=== PATIENT | male | born 1955 | race Caucasian/White ===

== ENCOUNTER 2021-06-03 09:34 | Day surgery (SDC) | payer MEDICARE ==
[~2021-06-03] VITALS: Ht 182.9 cm; Wt 78.8 kg
[~2021-06-03 09:34] MED LIST: Apriso0.375 GM PO; Canasa1000 MG PR; LATANOPROST 0.7.5 ML; PRED20; UCERIS9 MG PO; VITAMIN D2000 UNIT PO
[2021-06-03] MEDS ORDERED: DORZOPSO (10:33)
[2021-06-03] MEDS ORDERED: BALSALAZIDE DI750 M1 (10:33)
== END 2021-06-03 13:00 | disposition home or self-care (01) ==
LOC: ORSCSDS 09:34
PROVIDERS: Internal Medicine Gastroenterology
PROC: 0DBP8ZX Excision of Rectum, Via Natural or Artificial Opening Endoscopic, Diagnostic (ICD-10-PCS; principal; 2021-06-03 10:45)
PROC: 0DBH8ZX Excision of Cecum, Via Natural or Artificial Opening Endoscopic, Diagnostic (ICD-10-PCS; principal; 2021-06-03 10:45)
PROC: 0DBL8ZX Excision of Transverse Colon, Via Natural or Artificial Opening Endoscopic, Diagnostic (ICD-10-PCS; principal; 2021-06-03 10:45)
PROC: 0DBM8ZX Excision of Descending Colon, Via Natural or Artificial Opening Endoscopic, Diagnostic (ICD-10-PCS; principal; 2021-06-03 10:45)
PROC: 0DBN8ZX Excision of Sigmoid Colon, Via Natural or Artificial Opening Endoscopic, Diagnostic (ICD-10-PCS; principal; 2021-06-03 10:45)
PROC: 0DBK8ZX Excision of Ascending Colon, Via Natural or Artificial Opening Endoscopic, Diagnostic (ICD-10-PCS; principal; 2021-06-03 10:45)
DX: K51.30 Ulcerative (chronic) rectosigmoiditis without complications (principal); Z79.899 Other long term (current) drug therapy
CPT/HCPCS: 88305; J2704; J7120

== ENCOUNTER → 2022-02-16 | Outpatient (CLI) | payer MEDICARE ==
[~2022-02-16] MED LIST changes: +BALSALAZIDE DI750 M1; +DORZOPSO
== END ==
LOC: LAB 10:21 → LAB SHORT 10:21
DX: L82.1 Other seborrheic keratosis (principal)
CPT/HCPCS: 88305

== ENCOUNTER 2023-06-05 06:47 | Day surgery (SDC) | payer MEDICARE ==
[~2023-06-05] VITALS: Ht 182.9 cm; Wt 74.5 kg
[~2023-06-05 06:47] MED LIST changes: -BALSALAZIDE DI750 M1; +BALSALAZIDE DI750 M1 PO; -VITAMIN D2000 UNIT PO; +VITAMIN D350 MC3 PO
[2023-06-05] MEDS ORDERED: [UNRECOGNIZED DRUG - OTHER] (07:26)
[2023-06-05] MEDS ORDERED: CALCIUM (07:26)
[2023-06-05] MEDS ORDERED: Lactated Ringer's 1,000 ML IV ONE ×2 (07:32→07:41)
[2023-06-05] MEDS ORDERED: propofoL 40 ML IV ONE (07:41)
[2023-06-05 09:01] VITALS: BP 131/79
== END 2023-06-05 09:01 | disposition home or self-care (01) ==
LOC: ORSCSDS 06:47
PROVIDERS: Internal Medicine Gastroenterology
PROC: 0DBE8ZX Excision of Large Intestine, Via Natural or Artificial Opening Endoscopic, Diagnostic (ICD-10-PCS; principal; 2023-06-05 08:00)
DX: K51.90 Ulcerative colitis, unspecified, without complications (principal); K64.8 Other hemorrhoids; Z79.899 Other long term (current) drug therapy
CPT/HCPCS: 88305; J2704; J7120